=== PATIENT | female | born 1950 | race Caucasian/White ===

== ENCOUNTER 2018-03-03 07:47 | Emergency (ER) | payer OTHER ==
[2018-03-03] MEDS: TETRACAINE 0.5% 4 ML OPH LEFT EYE (08:40)
[2018-03-03] MEDS: ACETAMINOPHEN 500 MG TAB PO (08:40)
[2018-03-03] MEDS: FLUORESCEIN STRIP LEFT EYE (08:40)
[2018-03-03] MEDS: KETOROLAC 30 MG INJ IM (09:37)
== END 2018-03-03 10:06 | disposition home or self-care (01) ==
LOC: FTE 07:47
DX: H57.12 Ocular pain, left eye (principal); R51 Headache; I10 Essential (primary) hypertension; Z85.028 Personal history of other malignant neoplasm of stomach
CPT/HCPCS: 70450; 96372; 99285-25

== ENCOUNTER 2018-10-05 06:31 | Day surgery (SDC) | payer OTHER ==
[2018-10-05] MEDS ORDERED: MIDAZOLAM 1 MG/ML 2 ML INJ ×2 (08:00)
[2018-10-05] MEDS ORDERED: FENTAnyl 50 MCG/ML VIAL (08:00)
== END 2018-10-05 15:32 | disposition home or self-care (01) ==
LOC: GIL 06:31
DX: K29.50 Unspecified chronic gastritis without bleeding (principal)
CPT/HCPCS: 43239; 88305; 88312

== ENCOUNTER 2018-11-21 06:19 | Emergency (ER) | payer OTHER ==
[2018-11-21] MEDS: morphine 4 MG/ML VIAL IV (07:06)
[2018-11-21] MEDS: ONDANSETRON 4 MG INJ IV (07:06)
[2018-11-21 07:40] LABS: ADD MAN DIFF? NO
[2018-11-21 07:43] LABS: WHITE BLOOD COUNT 6.1 10^3/ul (4.8-10.8)
[2018-11-21 07:43] LABS: BASOPHIL # 0.1 10^3/ul (0.0-0.1); BASOPHILS % 0.8 % (0.0-2.0); EOSINOPHILS # 0.2 10^3/ul (0.0-0.5); EOSINOPHILS % 2.9 % (0.0-7.0); HEMOGLOBIN 11.6 g/dl (12.0-16.0); LYMPHOCYTES # 1.3 10^3/ul (0.8-2.9); LYMPHOCYTES % 21.8 % (15.0-51.0); MEAN CORPUSCULAR HEMOGLOBIN 28.1 pg (29.0-33.0); MEAN CORPUSCULAR HGB CONC 33.1 g/dl (32.0-37.0); MEAN CORPUSCULAR VOLUME 84.7 fl (82.0-101.0); MEAN PLATELET VOLUME 10.3 fl (7.4-10.4); MONOCYTE # 0.6 10^3/ul (0.3-0.9); MONOCYTES % 9.5 % (0.0-11.0); NEUTROPHILS % 64.7 % (39.0-77.0); PLATELET COUNT 327 10^3/UL (140-415); RED BLOOD COUNT 4.13 10^6/ul (4.20-5.40)
[2018-11-21 07:44] LABS: ADD UMIC YES; UR ASCORBIC ACID NEGATIVE (NEGATIVE); UR BILIRUBIN (Dip) NEGATIVE (NEGATIVE); UR BLOOD (Dip) NEGATIVE (NEGATIVE); UR CLARITY CLEAR (CLEAR); UR COLOR YELLOW (YELLOW); UR GLUCOSE (Dip) NEGATIVE (NEGATIVE); UR KETONES (Dip) NEGATIVE (NEGATIVE); UR LEUKOCYTE ESTERASE (Dip) NEGATIVE Leu/ul (NEGATIVE); UR NITRITE (Dip) NEGATIVE (NEGATIVE); UR RBC 1 /HPF (0-5); UR SPECIFIC GRAVITY (Dip) 1.013 (1.003-1.030); UR TOTAL PROTEIN (Dip) 2+ mg/dl (NEGATIVE); UR UROBILINOGEN (Dip) NEGATIVE (NEGATIVE); UR WBC 2 /HPF (0-5)
[2018-11-21 08:01] LABS: ALANINE AMINOTRANSFERASE 28 IU/L (13-69); ALBUMIN 3.8 g/dl (3.3-4.9); ALBUMIN/GLOBULIN RATIO 1.05; ALKALINE PHOSPHATASE 99 IU/L (42-121); ANION GAP 10 (5-13); ASPARTATE AMINO TRANSFERASE 34 IU/L (15-46); BILIRUBIN,INDIRECT 0.2 mg/dl (0-1.1); BILIRUBIN,TOTAL 0.2 mg/dl (0.2-1.3); BLOOD UREA NITROGEN 37 mg/dl (7-20); CALCIUM 8.7 mg/dl (8.4-10.2); CARBON DIOXIDE 29 mmol/L (21-31); CHLORIDE 100 mmol/L (97-110); CREATININE 1.62 mg/dl (0.44-1.00); Estimated GFR 32 mL/min (>60); GLUCOSE 93 mg/dl (70-220); LIPASE 97 U/L (23-300); POTASSIUM 3.8 mmol/L (3.5-5.1); SODIUM 139 mmol/L (135-144); TOTAL PROTEIN 7.4 g/dl (6.1-8.1)
[2018-11-21 08:12] LABS: TROPONIN-I < 0.012 ng/ml (0.000-0.120)
== END 2018-11-21 09:10 | disposition home or self-care (01) ==
LOC: E/R 09:10
DX: R10.84 Generalized abdominal pain (principal); I10 Essential (primary) hypertension; Z85.028 Personal history of other malignant neoplasm of stomach
CPT/HCPCS: 36415; 74176; 80053; 81001; 83690; 84484; 85025; 93005; 96374; 96375; 99285-25

== ENCOUNTER 2019-03-14 23:14 | Emergency (ER) | payer OTHER | END 2019-03-15 02:44 | disposition home or self-care (01) | LOC: FTE 23:14 | DX: L50.9 Urticaria, unspecified (principal); I10 Essential (primary) hypertension | CPT/HCPCS: 99283 ==

== ENCOUNTER 2019-03-16 21:09 | Emergency (ER) | payer OTHER ==
[2019-03-16] MEDS: TETRACAINE 0.5% 4 ML OPH LEFT EYE (22:41)
[2019-03-16] MEDS: ACETAMINOPHEN 325 MG TAB PO (23:41)
== END 2019-03-17 00:02 | disposition home or self-care (01) ==
LOC: E/R 03-17 00:02
DX: H57.12 Ocular pain, left eye (principal); I10 Essential (primary) hypertension
CPT/HCPCS: 99282